=== PATIENT | female | born 1990 | race Caucasian/White ===

== ENCOUNTER 2023-05-06 09:50 | Observation (INO) | payer OTHER, SELFPAY ==
[2023-05-06 10:10] VITALS: BP 137/80; BMI 35.9
== END 2023-05-06 12:41 | disposition home or self-care (01) ==
LOC: LDRP 09:50
PROVIDERS: ADMITTING PHYSICIAN Obstetrics & Gynecology; FAMILY PHYSICIAN Nurse Practitioner Primary Care
DX: O48.0 Post-term pregnancy (principal); Z3A.40 40 weeks gestation of pregnancy; Z88.0 Allergy status to penicillin; O99.283 Endocrine, nutritional and metabolic diseases complicating pregnancy, third trimester; E03.9 Hypothyroidism, unspecified; Z82.3 Family history of stroke
CPT/HCPCS: 36415; 76815; 86850; 86900; 86901; G0378

== ENCOUNTER 2023-05-08 08:00 | Inpatient (IN) | payer OTHER, SELFPAY ==
[2023-05-08 08:21] VITALS: BP 137/80; BMI 35.9
[2023-05-08 09:15] LABS: % Basophils 0.3 % (0-2); % Eosinophils 1.1 % (0-6); % Immature Granulocytes 0.6 % (0-0.5); % Lymphocytes 20.1 % (20.5-51.1); % Monocytes 9.3 % (1.7-9.3); % Neutrophils 68.6 % (42.2-75.2); Absolute Eosinophils 0.1 10^3/uL (0-0.7); Absolute Immature Granulocytes 0.1 10^3/uL (0-0.05); Absolute Lymphocytes 1.9 10^3/uL (1.2-3.4); Absolute Monocytes 0.9 10^3/uL (0.1-0.6); Absolute Neutrophils 6.6 10^3/uL (1.4-6.5); Hematocrit 32.1 % (37.0-47.0); Hemoglobin 11.6 g/dL (12.0-16.0); Mean Corp Hgb Conc. 36.1 g/dL (33.0-37.0); Mean Corpuscular Hgb 31.4 pg (27.0-31.0); Mean Corpuscular Volume 86.8 fL (81.0-99.0); Mean Platelet Volume 11.6 fL (7.4-10.4); Nucleated Red Blood Cells % 0 %; Platelet Count 230 10^3/uL (130-400); Red Cell Dist. Width 12.9 % (11.5-14.5); White Blood Cell Count 9.7 10^3/uL (4.8-10.8)
[2023-05-08] MEDS: PITOCIN 30 UNITS/NSS 500 ML IV (11:07)
[2023-05-08] MEDS: SUBLIMAZE 100 MCG EPIDURAL (22:28)
[2023-05-08] MEDS: FENTANYL/BUPIVACAINE 100 EPIDURAL (22:29)
[2023-05-09] MEDS: FENTANYL/BUPIVACAINE 100 EPIDURAL (05:58)
[2023-05-09] MEDS: BICITRA 30 ML PO (13:08)
[2023-05-09] MEDS: CLEOCIN 50 IV (13:08)
[2023-05-09] MEDS: TYLENOL 1000 MG PO (13:08)
[2023-05-09] MEDS: GENTAMICIN 60 MG IV (13:28)
[2023-05-09] MEDS: PITOCIN 30 UNITS/NSS 500 ML IV (14:30)
[2023-05-09] MEDS: TORADOL 15 MG IV (20:09)
[2023-05-10] MEDS: TORADOL 15 MG IV ×3 (01:42→14:06)
[2023-05-10 05:16] LABS: Hematocrit 23.8 % (37.0-47.0); Hemoglobin 8.6 g/dL (12.0-16.0); Mean Corp Hgb Conc. 36.1 g/dL (33.0-37.0); Mean Corpuscular Hgb 31.6 pg (27.0-31.0); Mean Corpuscular Volume 87.5 fL (81.0-99.0); Mean Platelet Volume 11.7 fL (7.4-10.4); Platelet Count 194 10^3/uL (130-400); Red Blood Cell Count 2.72 10^6/uL (4.20-5.40)
[2023-05-10] MEDS: FEOSOL 325 MG PO ×2 (08:06→21:43)
[2023-05-10] MEDS: SENOKOT-S 1 TABLET PO (08:14)
[2023-05-10] MEDS: MYLICON 80 MG PO ×3 (08:14→21:51)
--- NOTE | 2023-05-10 08:53 | W.PN.ANS.POP ---
Anesthesia Post Operative
- Anesthesia Post Op Note
Vital Signs Stable-See Nursing Note: Yes
Airway Patent: Yes
Adequate Pain Control: Yes
Change in Mental Status: No
Current Postoperative Nausea & Vomiting: No
Anesthesia Complications: No
General Anesthetic Recall: No
Unplanned Admission: No
Post Op Hydration Adequate: Yes
[2023-05-10 16:43] LABS: Syphilis/T. pallidum Ab Reflex Negative (Negative)
[2023-05-10] MEDS: TYLENOL 650 MG PO (20:04)
[2023-05-10] MEDS: MOTRIN 600 MG PO (20:04)
[2023-05-11] MEDS: MOTRIN 600 MG PO ×4 (02:40→22:28)
[2023-05-11] MEDS: TYLENOL 650 MG PO ×4 (02:41→22:29)
[2023-05-11] MEDS: SENOKOT-S 1 TABLET PO (09:01)
[2023-05-11] MEDS: FEOSOL 325 MG PO ×2 (09:01→19:42)
[2023-05-12] MEDS: TYLENOL 650 MG PO ×2 (04:41→10:18)
[2023-05-12] MEDS: MOTRIN 600 MG PO ×2 (04:41→10:17)
[2023-05-12] MEDS: FEOSOL 325 MG PO (08:38)
[2023-05-12] MEDS: SENOKOT-S 1 TABLET PO (08:38)
[2023-05-12] MEDS: M-M-R II 0.5 ML SC (10:46)
== END 2023-05-12 11:00 | disposition home or self-care (01) | DRG 788 ==
LOC: LDRP 08:00
PROVIDERS: ADMITTING PHYSICIAN Obstetrics & Gynecology; PRIMARYCARE PHYSICIAN Obstetrics & Gynecology
PROC: 10D00Z1 Extraction of Products of Conception, Low, Open Approach (ICD-10-PCS; 2023-05-09)
DX: O48.0 Post-term pregnancy (principal); Z3A.41 41 weeks gestation of pregnancy; O33.9 Maternal care for disproportion, unspecified; O61.0 Failed medical induction of labor; Z37.0 Single live birth; O99.284 Endocrine, nutritional and metabolic diseases complicating childbirth; E03.9 Hypothyroidism, unspecified
CPT/HCPCS: 88307; 85025; 85027; 86780; 86850; 86900; 86901; 90707